=== PATIENT | male | born 1980 | race Hispanic/Latino ===

== ENCOUNTER 2017-06-23 07:05 | Emergency (ER) | payer OTHER, BC ==
[~2017-06-23] VITALS: Ht 170.2 cm; Wt 86.2 kg
[~2017-06-23 07:05] MED LIST: HYDROCODON-ACE1 EAC8 PO; NAPROXEN375 MG PO
== END 2017-06-23 09:32 | disposition home or self-care (01) ==
LOC: ED 07:05
DX: S46.011A Strain of muscle(s) and tendon(s) of the rotator cuff of right shoulder, initial encounter (principal); W17.89XA Other fall from one level to another, initial encounter
CPT/HCPCS: 73030; 99283

== ENCOUNTER 2017-11-05 09:04 | Emergency (ER) | payer OTHER, BC ==
[~2017-11-05] VITALS: Ht 170.2 cm; Wt 86.2 kg
--- OUTSIDE RECORDS SUMMARY | ~2017-11-05 | XMS | Clinical Summary ---
Demographics + + + | Address | [address] | | | [place] [address] | + + + | Home Phone | | + + + | Preferred Language | Unknown | + + + | Marital Status | Single | + + + | Taoism Affiliation | UNKNOWN | + + + [...] Team Providers + +------+ + | Care Marine Mechanic Name | Role | Phone | + [...] +--------+-------+---------+ | WC OTHER | WC | [id number] | Indemn | | | | | [...] | | | 0000 | [place] [address] | + +--------+ +--------+ + + | MELANY IBARRA | Person | Self | [birth year] | Home: | [address] | | | al/Fam | | 1980 | [address] | | | [place] | | | 0000 | [place] [address] | + +--------+ +--------+ + +"
--- OUTSIDE RECORDS SUMMARY | ~2017-11-05 | XMS | Clinical Summary ---
Demographics + + + | Address | [address] | | | [place] [address] | + + + | Home Phone | | + + + | Preferred Language | Unknown | + + + | Marital Status | Single | + + + | Temple Affiliation | UNKNOWN | + + + [...] Team Providers + +------+ + | Care Quality Assurance Supervisor Name | Role | Phone | + [...] +--------+-------+---------+ | WC OTHER | WC | [id number] | Indemn | | | | | [...] | | | 0000 | [place] [address] | + +--------+ +--------+ + + | MELANY IBARRA | Person | Self | [birth year] | Home: | [address] | | | al/Fam | | 1980 | [address] | | | [place] | | | 0000 | [place] [address] | + +--------+ +--------+ + +"
== END 2017-11-05 09:52 | disposition home or self-care (01) ==
LOC: ED 09:04
PROC: 08C8XZZ Extirpation of Matter from Right Cornea, External Approach (ICD-10-PCS; principal; 2017-11-05)
DX: T15.01XA Foreign body in cornea, right eye, initial encounter (principal); H15.89 Other disorders of sclera
CPT/HCPCS: 65220; 99282

== ENCOUNTER 2017-11-06 12:21 | Emergency (ER) | payer OTHER, BC ==
[~2017-11-06] VITALS: Ht 170.2 cm; Wt 86.2 kg
--- OUTSIDE RECORDS SUMMARY | ~2017-11-06 | XMS | Clinical Summary ---
Demographics + + + | Address | [address] | | | [place] [address] | + + + | Home Phone | | + + + | Preferred Language | Unknown | + + + | Marital Status | Single | + + + | Mormon Affiliation | UNKNOWN | + + + | Race | Other Race | + + + | Ethnic Group | or | + + + Author + + + | Author | [facility] | + + + | Organization | [facility] | + + + | Address | Unknown | + + + | Phone | Unavailable | + + + Support +------+ +---------+ + | Name | Relationship | Address | Phone | +------+ +---------+ + | none | ECON | Unknown | Unavailable | +------+ +---------+ + Care Team Providers + +------+ + | Care Revenue Stamp Cutter Name | Role | Phone | + +------+ + | None Per Patient, None Per | PP | Unavailable | | Pt | | | + +------+ + Allergies No Known Allergies Current Medications + + +-------+---------+------+------+-------+ | Prescription | Sig. | Disp. | Refills | Star | End | Statu | | | | | | t | Date | s | | | | | | Date | | | + + +-------+---------+------+------+-------+ | | Take 1 tablet by | | | | | Activ | | HYDROcodone-acetamin | mouth Every 6 Hours | | | | | e | | ophen (NORCO) 10-325 | As Needed for Pain | | | | | | | mg per tablet | | | | | | | + + +-------+---------+------+------+-------+ Active Problems + + + | Problem | Noted Date | + + + | Strain of left wrist | 01/30/2014 | + + + | Left shoulder strain | 01/30/2014 | + + + Social History + +-------+ +--------+------+ | Tobacco Use | Types | Packs/Day | Years | Date | | | | | Used | | + +-------+ +--------+------+ | Never Assessed | | | | | + +-------+ +--------+------+ + + + | Sex Assigned at | Date Recorded | | | | + + + | Not on file | | + + + Last Filed Vital Signs + + + + | Vital Sign | Reading | Time Taken | + + + + | Blood Pressure | 128/77 | 01/06/2014 8:49 AM PDT | + + + + | Pulse | 68 | 01/06/2014 8:49 AM PDT | + + + + | Temperature | - | - | + + + + | Respiratory Rate | - | - | + + + + | Oxygen Saturation | - | - | + + + + | Inhaled Oxygen | - | - | | Concentration | | | + + + + | Weight | 86.2 kg (190 lb) | 01/06/2014 8:49 AM PDT | + + + + | Height | - | - | + + + + | Body Mass Index | - | - | + + + + Plan of Treatment + + + + + | Health Maintenance | Due Date | Last Done | Comments | + + + + + | HIV Screening | | | | | | 4 | | | + + + + + | Tetanus | | | | | | 8 | | | + + + + + | IMM Influenza (#1) | | | | | | 7 | | | + + + + + Results Not on filefrom Last 3 Months Insurance + +--------+ +--------+-------+---------+ | Payer | Benefi | Subscriber | Type | Phone | Address | | | t Plan | ID | | | | | | / | | | | | | | Group | | | | | + +--------+ +--------+-------+---------+ | WC OTHER | WC | [id number] | Indemn | | | | | OTHER | 6 | ity | | | + +--------+ +--------+-------+---------+ + +--------+ +--------+ + + | Guarantor Name | Accoun | Relation to | Date | Phone | Billing Address | | | t Type | Patient | of | | | | | | | | | | + +--------+ +--------+ + + | 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
--- OUTSIDE RECORDS SUMMARY | ~2017-11-06 | XMS | Clinical Summary ---
Demographics + + + | Address | [address] | | | [place] [address] | + + + | Home Phone | | + + + | Preferred Language | Unknown | + + + | Marital Status | Single | + + + | Druze Affiliation | UNKNOWN | + + + [...] Team Providers + +------+ + | Care Director Of Events Name | Role | Phone | + [...] +--------+-------+---------+ | WC OTHER | WC | [id number] | Indemn | | | | | [...] | | | 0000 | [place] [address] | + +--------+ +--------+ + + | MELANY IBARRA | Person | Self | [birth year] | Home: | [address] | | | al/Fam | | 1980 | [address] | [address] | | | [place] | | | [address] | [place] [address] | + +--------+ +--------+ + +"
== END 2017-11-06 13:07 | disposition home or self-care (01) ==
LOC: ED 12:21
DX: S05.01XA Injury of conjunctiva and corneal abrasion without foreign body, right eye, initial encounter (principal); Z87.891 Personal history of nicotine dependence; X58.XXXA Exposure to other specified factors, initial encounter
CPT/HCPCS: 99282

== ENCOUNTER 2018-04-28 06:22 | Emergency (ER) | payer OTHER, BC ==
[~2018-04-28] VITALS: Ht 170.2 cm; Wt 86.2 kg
--- OUTSIDE RECORDS SUMMARY | ~2018-04-28 | XMS | Clinical Summary ---
Demographics + + + | Address | [address] | | | [place] [address] | + + + | Home Phone | | + + + | Preferred Language | Unknown | + + + | Marital Status | | + + + | Adventist Affiliation | [phone] | + + + | Race | Unknown | + + + | Ethnic Group | Unknown | + + + Author + + + | Author | [facility] | + + + | Organization | [facility] | + + + | Address | Unknown | + + + | Phone | Unavailable | + + + Support + + + + + | Name | Relationship | Address | Phone | + + + + + | Fred Shearer, | ECON | [address] | | | [place] | | [place] | | | | | [address] | | + + + + + Care Team Providers + +------+ + | Care Tree Deadener Name | Role | Phone | + +------+ + | [facility], [place] | PP | Unavailable | | Family | | | + +------+ + Allergies No Known Allergies Current Medications + + +--------+---------+------+------+-------+ | Prescription | Sig. | Disp. | Refills | Star | End | Statu | | | | | | t | Date | s | | | | | | Date | | | + + +--------+---------+------+------+-------+ | penicillin v | Take 1 tablet by | 40 | 0 | 03/1 | | Activ | | potassium (VEETID) | mouth 4 (four) times | tablet | | 7/20 | | e | | 500 MG tablet | daily. | | | 17 | | | + + +--------+---------+------+------+-------+ Active Problems Not on file Social History + +-------+ +--------+------+ | Tobacco Use | Types | Packs/Day | Years | Date | | | | | Used | | + +-------+ +--------+------+ | Never Smoker | | | | | + +-------+ +--------+------+ + +---+---+---+ | Smokeless Tobacco: | | | | | Never Used | | | | + +---+---+---+ + + +---------+ + | Alcohol Use | Drinks/We | oz/Week | Comments | | | ek | | | + + +---------+ + | Yes | 1-2 | 0.6 - | | | | Standard | 1.2 | | | | drinks or | | | | | | | | | | equivalen | | | | | t | | | + + +---------+ + + + + | Sex Assigned at | Date Recorded | | | | + + + | Not on file | | + + + Last Filed Vital Signs + + + + | Vital Sign | Reading | Time Taken | + + + + | Blood Pressure | 167/87 | 11/21/2016 7:14 PM PDT | + + + + | Pulse | 76 | 11/21/2016 9:18 PM PDT | + + + + | Temperature | 37.3 C (99.1 F) | 11/21/2016 7:14 PM PDT | + + + + | Respiratory Rate | 16 | 11/21/2016 9:18 PM PDT | + + + + | Oxygen Saturation | 95% | 11/21/2016 9:18 PM PDT | + + + + | Inhaled Oxygen | - | - | | Concentration | | | + + + + | Weight | 86.5 kg (190 lb 11.2 | 11/21/2016 7:14 PM PDT | | | oz) | | + + + + | Height | 170.2 cm (5' 7") | 11/21/2016 7:14 PM PDT | + + + + | Body Mass Index | 29.87 | 11/21/2016 7:14 PM PDT | + + + + Plan of Treatment Not on file Results Not on filefrom Last 3 Months Insurance + +--------+ +------+-------+ + | Payer | Benefi | Subscriber | Type | Phone | Address | | | t Plan | ID | | | | | | / | | | | | | | Group | | | | | + +--------+ +------+-------+ + | [employer] [employer] [place] | LABOR | [id number] | | | | | OTHER [place] | & | | | | | | | [place] | | | | | | [place] | | | | | | | OTHER | | | | | | | [place] | | | | | + +--------+ +------+-------+ + | AUTO INSURANCE | AUTO | [id number] | | | | | | INSURA | | | | | | | NCE | | | | | | | GENERI | | | | | | | C | | | | | + +--------+ +------+-------+ + | PREMERA | PREMER | [id number] | | | [address] [address] | | | A BLUE | 0 | | | [place] | | | CARD | | | | [phone] | + +--------+ +------+-------+ + + +--------+ +--------+ + + | Guarantor Name | Accoun | Relation to | Date | Phone | Billing Address | | | t Type | Patient | of | | | | | | | | | | + +--------+ +--------+ + + | IBARRA | Person | Self [birth year] | Home: | [address] | | [place] | al/Fam | | 1980 | +- | [place] | | | [place] | | | [phone] | [phone] | + +--------+ +--------+ + + | FRED | Third | Self | [birth year] | Home: | [address] | | [place] | Republican | | 1980 | +- | [place] | | | [place] | | | [phone] | | | [place] | | | | | + +--------+ +--------+ + +
== END 2018-04-28 07:05 | disposition home or self-care (01) ==
LOC: ED 06:22
DX: S39.012A Strain of muscle, fascia and tendon of lower back, initial encounter (principal); V43.52XA Car driver injured in collision with other type car in traffic accident, initial encounter; Z87.891 Personal history of nicotine dependence
CPT/HCPCS: 72100; 99284